=== PATIENT | female | born 1995 | race African-American/Black ===

== ENCOUNTER 2017-01-23 19:09 | Emergency (ER) | payer MEDICAID, OTHER ==
[~2017-01-23] VITALS: Ht 162.6 cm; Wt 54.0 kg
[2017-01-23 19:11] VITALS: BP 119/78
== END 2017-01-23 22:15 | disposition left against medical advice (07) ==
LOC: ER 19:29
DX: J02.9 Acute pharyngitis, unspecified (principal); Z53.21 Procedure and treatment not carried out due to patient leaving prior to being seen by health care provider